=== PATIENT | female | born 1995 | race Caucasian/White ===

== ENCOUNTER → 2017-12-14 | Outpatient (CLI) | payer OTHER ==
[2017-12-21 10:13] LABS: CHLAMYDIA BY NAA Positive (Negative); GONOCOCCUS BY NAA Negative (Negative); TRICH VAG BY NAA Negative (Negative)
== END | disposition home or self-care (01) ==
LOC: LAB 12:04 → LAB SHORT 12:04
PROVIDERS: Obstetrics & Gynecology
DX: Z11.3 Encounter for screening for infections with a predominantly sexual mode of transmission (principal); Z01.419 Encounter for gynecological examination (general) (routine) without abnormal findings
CPT/HCPCS: 87491; 87591; 87661; G0123

== ENCOUNTER → 2021-03-13 | Outpatient (CLI) | payer OTHER ==
[2021-03-15 01:10] LABS: CHLAMYDIA TRACHOMATIS, NAA Negative (Negative)
== END ==
LOC: LAB 13:50 → LAB SHORT 13:50
PROVIDERS: Advanced Practice Midwife
DX: Z01.419 Encounter for gynecological examination (general) (routine) without abnormal findings (principal); Z11.3 Encounter for screening for infections with a predominantly sexual mode of transmission
CPT/HCPCS: 87491; 87591; G0123

== ENCOUNTER → 2021-10-19 | Outpatient (CLI) | payer OTHER ==
[2021-10-20 08:08] LABS: HIV AB/P24 AG SCREEN Non Reactive (Non Reactive)
[2021-10-20 09:08] LABS: HBSAG SCREEN Negative (Negative); HCV AB <0.1 (0.0-0.9); HEP A AB, IGM Negative (Negative); HEP B CORE AB, IGM Negative (Negative)
[2021-10-20 22:08] LABS: CHLAMYDIA TRACHOMATIS, NAA Negative (Negative)
== END ==
LOC: LAB SHORT 11:40 → LAB 11:40
PROVIDERS: Physician Assistant
DX: N76.0 Acute vaginitis (principal); N72 Inflammatory disease of cervix uteri
CPT/HCPCS: 80074; 86592; 87086; 87389; 87491; 87591

== ENCOUNTER → 2022-06-14 | Outpatient (CLI) | payer OTHER | LOC: LAB 09:53 → LAB SHORT 09:53 | DX: R30.0 Dysuria (principal) | CPT/HCPCS: 87086 ==

== ENCOUNTER → 2022-09-10 | Outpatient (CLI) | payer OTHER ==
[2022-09-12 05:12] LABS: CHLAMYDIA TRACHOMATIS, NAA Negative (Negative)
== END | disposition home or self-care (01) ==
LOC: LAB 09:47 → LAB SHORT 09:47
PROVIDERS: Obstetrics & Gynecology
DX: Z11.3 Encounter for screening for infections with a predominantly sexual mode of transmission (principal)
CPT/HCPCS: 87491; 87591

== ENCOUNTER → 2022-10-08 | Outpatient (CLI) | payer OTHER ==
[2022-10-08 16:29] LABS: BASOPHILS ABSOLUTE AUTO 0.06 K/mm3 (0.00-0.23); BASOPHILS PERCENT AUTO 1 % (0-2); EOSINOPHILS ABSOLUTE AUTO 0.12 K/mm3 (0.00-0.68); EOSINOPHILS PERCENT AUTO 1 % (0-6); Hematocrit 39.1 % (33.0-51.0); Hemoglobin 13.5 g/dL (11.5-16.0); IMMATURE GRAN ABSOLUTE AUTO 0.06 K/mm3 (0.00-0.10); IMMATURE GRAN PERCENT AUTO 1 % (0-1); LYMPHOCYTES ABSOLUTE AUTO 2.08 K/mm3 (0.84-5.20); LYMPHOCYTES PERCENT AUTO 19 % (21-46); MONOCYTES ABSOLUTE AUTO 0.66 K/mm3 (0.16-1.47); MONOCYTES PERCENT AUTO 6 % (4-13); Mean Corpuscular HGB 31.5 pg (26.0-34.0); Mean Corpuscular HGB Conc 34.5 g/dL (31.5-36.5); Mean Corpuscular Volume 91 fL (80-100); NEUTROPHILS ABSOLUTE AUTO 8.01 K/mm3 (1.96-9.15); NEUTROPHILS PERCENT AUTO 73 % (41-73); Platelet Count 279 K/mm3 (150-400); RDW Coefficient Variation 12.4 % (11.7-14.2); RDW Standard Deviation 41.3 fL (35.1-46.3); Red Blood Cell Count 4.28 M/mm3 (3.80-5.20); White Blood Cell Count 10.99 K/mm3 (4.00-11.30)
[2022-10-08 17:18] LABS: Albumin, Blood 3.1 g/dL (3.4-5.0); Albumin/Globulin Ratio 0.9 (0.8-1.8); Bilirubin, Total 0.3 mg/dL (0.1-1.0); Bun/Creatinine Ratio 18.9 (12.0-20.0); Calcium, Blood 8.7 mg/dL (8.5-10.1); Creatinine, Blood 0.48 mg/dL (0.40-1.00); Globulin, Blood 3.6 g/dL (2.2-4.0); Potassium, Blood 3.5 mmol/L (3.5-5.5); Total Protein, Blood 6.7 g/dL (6.4-8.2)
[2022-10-10 19:08] LABS: AFP MOM 0.44 (.); AFP VALUE 22.7 ng/mL (.); GEST. AGE ON COLLECTION DATE 18.4 weeks (.); INSULIN DEP DIABETES No (.); MATERNAL AGE AT EDD 26.4 yr (.); MULTIPLE GESTATION No (.); OSBR RISK 1 IN 10000 (.); RACE Other (.); TEST RESULTS: *Screen Negative* (.); WEIGHT 132 lbs (.)
== END | disposition home or self-care (01) ==
LOC: LAB 14:05 → LAB SHORT 14:05
PROVIDERS: Advanced Practice Midwife
DX: O09.92 Supervision of high risk pregnancy, unspecified, second trimester (principal); R03.0 Elevated blood-pressure reading, without diagnosis of hypertension
CPT/HCPCS: 80053; 82105; 85025

== ENCOUNTER → 2022-10-13 | Outpatient (CLI) | payer OTHER ==
[2022-10-13 08:34] LABS: Protein, Urine Quantitative 7.1 mg/dL (0.0-11.9)
== END | disposition home or self-care (01) ==
LOC: LAB 06:30 → LAB SHORT 06:30
PROVIDERS: Advanced Practice Midwife
DX: R03.0 Elevated blood-pressure reading, without diagnosis of hypertension (principal)
CPT/HCPCS: 81050; 84156

== ENCOUNTER → 2023-02-11 | Outpatient (CLI) | payer OTHER ==
[2023-02-11 13:50] LABS: BASOPHILS ABSOLUTE AUTO 0.04 K/mm3 (0.00-0.23); BASOPHILS PERCENT AUTO 0 % (0-2); EOSINOPHILS PERCENT AUTO 1 % (0-6); Hematocrit 38.9 % (33.0-51.0); Hemoglobin 13.5 g/dL (11.5-16.0); IMMATURE GRAN ABSOLUTE AUTO 0.15 K/mm3 (0.00-0.10); IMMATURE GRAN PERCENT AUTO 1 % (0-1); LYMPHOCYTES ABSOLUTE AUTO 2.17 K/mm3 (0.84-5.20); LYMPHOCYTES PERCENT AUTO 17 % (21-46); MONOCYTES ABSOLUTE AUTO 0.89 K/mm3 (0.16-1.47); MONOCYTES PERCENT AUTO 7 % (4-13); Mean Corpuscular HGB 32.1 pg (26.0-34.0); Mean Corpuscular HGB Conc 34.7 g/dL (31.5-36.5); Mean Corpuscular Volume 92 fL (80-100); Mean Platelet Volume 10.6 fL (9.1-12.4); NEUTROPHILS ABSOLUTE AUTO 9.24 K/mm3 (1.96-9.15); NEUTROPHILS PERCENT AUTO 73 % (41-73); Platelet Count 207 K/mm3 (150-400); RDW Coefficient Variation 12.3 % (11.7-14.2); RDW Standard Deviation 41.7 fL (35.1-46.3); Red Blood Cell Count 4.21 M/mm3 (3.80-5.20); White Blood Cell Count 12.59 K/mm3 (4.00-11.30)
[2023-02-11 14:08] LABS: Albumin, Blood 2.7 g/dL (3.4-5.0); Albumin/Globulin Ratio 0.7 (0.8-1.8); Bilirubin, Total 0.1 mg/dL (0.1-1.0); Calcium, Blood 8.9 mg/dL (8.5-10.1); Creatinine, Blood 0.5 mg/dL (0.40-1.00); Total Protein, Blood 6.7 g/dL (6.4-8.2)
[2023-02-11 14:53] LABS: Creatinine, Urine Random 7.51 mg/dL (27.00-270.00)
[2023-02-11 14:57] LABS: Protein, Urine Random <5.0 mg/dL (0.0-11.9); Protein/Creat Ratio, Ur Random Unable to Calculate
== END | disposition home or self-care (01) ==
LOC: LAB 13:14 → LAB SHORT 13:14
PROVIDERS: Obstetrics & Gynecology
DX: O16.9 Unspecified maternal hypertension, unspecified trimester (principal)
CPT/HCPCS: 80053; 82570; 84156; 85025

== ENCOUNTER → 2023-02-24 | Outpatient (CLI) | payer OTHER | LOC: LAB 15:04 → LAB SHORT 15:04 | DX: O09.93 Supervision of high risk pregnancy, unspecified, third trimester (principal); Z3A.00 Weeks of gestation of pregnancy not specified | CPT/HCPCS: 87081; 87150 ==

== ENCOUNTER 2023-03-22 07:03 | Inpatient (IN) | payer OTHER, BC ==
[~2023-03-22] VITALS: Ht 165.1 cm; Wt 72.7 kg
[2023-03-22] VITALS (26 sets, daily range): BP systolic 113–150; BP diastolic 61–99
[2023-03-22 07:51] LABS: BASOPHILS ABSOLUTE AUTO 0.03 K/mm3 (0.00-0.23); BASOPHILS PERCENT AUTO 0 % (0-2); EOSINOPHILS ABSOLUTE AUTO 0.08 K/mm3 (0.00-0.68); EOSINOPHILS PERCENT AUTO 1 % (0-6); Hematocrit 38.2 % (33.0-51.0); Hemoglobin 13.1 g/dL (11.5-16.0); IMMATURE GRAN ABSOLUTE AUTO 0.04 K/mm3 (0.00-0.10); IMMATURE GRAN PERCENT AUTO 0 % (0-1); LYMPHOCYTES ABSOLUTE AUTO 2.08 K/mm3 (0.84-5.20); LYMPHOCYTES PERCENT AUTO 22 % (21-46); MONOCYTES ABSOLUTE AUTO 0.57 K/mm3 (0.16-1.47); MONOCYTES PERCENT AUTO 6 % (4-13); Mean Corpuscular HGB Conc 34.3 g/dL (31.5-36.5); Mean Corpuscular Volume 90 fL (80-100); NEUTROPHILS ABSOLUTE AUTO 6.54 K/mm3 (1.96-9.15); NEUTROPHILS PERCENT AUTO 70 % (41-73); Platelet Count 206 K/mm3 (150-400); RDW Coefficient Variation 12.2 % (11.7-14.2); RDW Standard Deviation 39.8 fL (35.1-46.3); Red Blood Cell Count 4.23 M/mm3 (3.80-5.20); White Blood Cell Count 9.34 K/mm3 (4.00-11.30)
[2023-03-22] MEDS ORDERED: PRENATAL TABLE1 EAC2 PO (09:24)
[2023-03-22] MEDS ORDERED: Aspir 8181 MG PO (09:24)
[2023-03-23] VITALS (30 sets, daily range): BP systolic 108–153; BP diastolic 56–98
--- NOTE | 2023-03-23 10:28 | NUR ---
Pt dozing, woke easily to touch. Reported nb has not eaten since 0630 feed. Nb asleep in open crib at bedside. Will try to wake nb soon for feed.
[2023-03-23 11:45] LABS: BASOPHILS ABSOLUTE AUTO 0.04 K/mm3 (0.00-0.23); BASOPHILS PERCENT AUTO 0 % (0-2); EOSINOPHILS ABSOLUTE AUTO 0.04 K/mm3 (0.00-0.68); EOSINOPHILS PERCENT AUTO 0 % (0-6); Hematocrit 32.1 % (33.0-51.0); Hemoglobin 10.8 g/dL (11.5-16.0); IMMATURE GRAN ABSOLUTE AUTO 0.07 K/mm3 (0.00-0.10); IMMATURE GRAN PERCENT AUTO 1 % (0-1); LYMPHOCYTES ABSOLUTE AUTO 2.29 K/mm3 (0.84-5.20); LYMPHOCYTES PERCENT AUTO 16 % (21-46); MONOCYTES ABSOLUTE AUTO 1.07 K/mm3 (0.16-1.47); MONOCYTES PERCENT AUTO 8 % (4-13); Mean Corpuscular HGB 30.8 pg (26.0-34.0); Mean Corpuscular HGB Conc 33.6 g/dL (31.5-36.5); Mean Corpuscular Volume 92 fL (80-100); Mean Platelet Volume 10.9 fL (9.1-12.4); NEUTROPHILS ABSOLUTE AUTO 10.71 K/mm3 (1.96-9.15); NEUTROPHILS PERCENT AUTO 75 % (41-73); Platelet Count 176 K/mm3 (150-400); RDW Coefficient Variation 12.5 % (11.7-14.2); RDW Standard Deviation 41.6 fL (35.1-46.3); Red Blood Cell Count 3.51 M/mm3 (3.80-5.20); White Blood Cell Count 14.22 K/mm3 (4.00-11.30)
--- NOTE | 2023-03-23 12:02 | NUR ---
1030: ROUNDED ON PT, DOZING, DENIED NEEDS 1040: CALL LIGHT ANSWERED BY Roel GARCIA, RN, PT C/O 9/10 PAIN IN PERINEUM. VALERY ASSESSED PERINEUM, NOTED EDEMATOUS BUT DID NOT FEEL SHE SAW A HEMATOMA, MEDICATED PT WITH TORADOL FOR PAIN AT 1044. 1050: THIS RN BACK TO ROOM W/NHI TO FURTHER ASSESS AND LARGE HEMATOMA NOTED ON RIGHT LABIA AND RIGHT SIDE OF PERINEUM. PT STILL PAINFUL 1052: CALLS PLACED TO Thalia PUGA CNM AND DR. SEE. 1105: DR SEE ON FLOOR FROM OR, VERBAL ORDER FOR FENTNYL FOR COMFORT SO SHE CAN BETTER ASSESS. FEELS PT SHOULD BE TAKEN TO OR FOR BETTER ASSESSMENT OF HEMATOMA AND REPAIR. 1145: PT TO OR
--- NOTE | 2023-03-23 12:05 | NUR ---
PT HERE FROM [facility] FOR EMERGENT EVAC OF VAGINAL HEMATOMA. Pre-Op teaching done. Pt verbalizes understanding. History, Chart, Medications and Allergies reviewed before start of procedure. ATE LAST AT 0630. WATER AT 1100
--- NOTE | 2023-03-23 13:32 | NUR ---
AWARE OF VSS ELEVATED BP AND PULSE NO NEW ORDERS
--- NOTE | 2023-03-23 14:20 | NUR ---
PERINEAL ASSESSEMNT left labial appears more swollen than right, still fair amount of bruising/dark tissue at base of vagina, perineum. Perineum not as soft as labial edema, will have RN who assessed when first back from OR look also to see if similar from when returned.
--- NOTE | 2023-03-23 14:50 | NUR ---
perineum unchanged from previous assessment
--- NOTE | 2023-03-23 16:00 | NUR ---
Perineum unchanged from preivous assessment, pt continues to deny increasing pain or pressure.
--- NOTE | 2023-03-23 18:00 | NUR ---
MD at bedside to assess perineum, also feels remains stable. Vag packing and jama to remain in place until AM.
--- NOTE | 2023-03-23 19:05 | NUR ---
Perinuem unchanged except left labial swelling decreasing slightly. NOC RN and supercharger mechanic in room to assess with offgoing shift. Lochia and vaginal bleeding light.
--- NOTE | 2023-03-23 22:07 | NUR ---
1930: INITIAL ASSESSMENT, LEFT LABIAL IS GROSSLY SWOLLEN COMPARE TO RIGHT, BRUISING AT THE BASE OF VAGINA THAT EXTENDS AROUND RECTUM. VAGINAL PACKING INTACT. VERY LIGHT BLEEDING IN YORDAN-AREA.
--- NOTE | 2023-03-23 23:54 | NUR ---
2330: PERINEUM REMAINED UNCHANGED FROM INITIAL ASSESSMENT.
[2023-03-24 04:17] VITALS: BP 116/68
--- NOTE | 2023-03-24 04:47 | NUR ---
0420: PATIENT'S PERINEUM REMAIN UNCHANGED, ASSESSED WITH HELLEN STINSON
[2023-03-24 06:29] LABS: BASOPHILS ABSOLUTE AUTO 0.04 K/mm3 (0.00-0.23); BASOPHILS PERCENT AUTO 0 % (0-2); EOSINOPHILS ABSOLUTE AUTO 0.05 K/mm3 (0.00-0.68); EOSINOPHILS PERCENT AUTO 0 % (0-6); Hematocrit 26.1 % (33.0-51.0); Hemoglobin 8.7 g/dL (11.5-16.0); IMMATURE GRAN ABSOLUTE AUTO 0.08 K/mm3 (0.00-0.10); IMMATURE GRAN PERCENT AUTO 1 % (0-1); LYMPHOCYTES ABSOLUTE AUTO 2.82 K/mm3 (0.84-5.20); LYMPHOCYTES PERCENT AUTO 23 % (21-46); MONOCYTES ABSOLUTE AUTO 0.74 K/mm3 (0.16-1.47); MONOCYTES PERCENT AUTO 6 % (4-13); Mean Corpuscular HGB 30.9 pg (26.0-34.0); Mean Corpuscular HGB Conc 33.3 g/dL (31.5-36.5); Mean Corpuscular Volume 93 fL (80-100); Mean Platelet Volume 10.4 fL (9.1-12.4); NEUTROPHILS ABSOLUTE AUTO 8.38 K/mm3 (1.96-9.15); NEUTROPHILS PERCENT AUTO 69 % (41-73); Platelet Count 156 K/mm3 (150-400); RDW Coefficient Variation 12.8 % (11.7-14.2); RDW Standard Deviation 42.6 fL (35.1-46.3); Red Blood Cell Count 2.82 M/mm3 (3.80-5.20); White Blood Cell Count 12.11 K/mm3 (4.00-11.30)
[2023-03-24 07:00] VITALS: BP 130/87
--- NOTE | 2023-03-24 10:51 | NUR ---
LATE ENTRY UPDATED EPIDURAL START DATE PER EMR GE
[2023-03-24 12:30] VITALS: BP 122/75
[2023-03-24 16:04] VITALS: BP 127/68
[2023-03-24 20:15] VITALS: BP 132/75
[2023-03-24 23:03] VITALS: BP 127/72
[2023-03-25 04:00] VITALS: BP 125/80
[2023-03-25 08:25] VITALS: BP 117/70
[2023-03-25] MEDS ORDERED: IBUP800 PO (09:42)
== END 2023-03-25 10:40 | disposition home or self-care (01) | DRG 806 ==
LOC: OBS 07:03 → BC 07:03 → OBS 07:14 → BC 07:15
PROVIDERS: Obstetrics & Gynecology; ADMIT Advanced Practice Midwife
PROC: 3E033VJ Introduction of Other Hormone into Peripheral Vein, Percutaneous Approach (ICD-10-PCS; 2023-03-23)
PROC: 3E0R3BZ Introduction of Anesthetic Agent into Spinal Canal, Percutaneous Approach (ICD-10-PCS; 2023-03-23)
PROC: 00HU33Z Insertion of Infusion Device into Spinal Canal, Percutaneous Approach (ICD-10-PCS; 2023-03-23)
PROC: 0UQMXZZ Repair Vulva, External Approach (ICD-10-PCS; 2023-03-23)
PROC: 0UQMXZZ Repair Vulva, External Approach (ICD-10-PCS; 2023-03-23)
PROC: 0UCG7ZZ Extirpation of Matter from Vagina, Via Natural or Artificial Opening (ICD-10-PCS; 2023-03-23)
PROC: 10E0XZZ Delivery of Products of Conception, External Approach (ICD-10-PCS; principal; 2023-03-23 12:00)
DX: O10.92 Unspecified pre-existing hypertension complicating childbirth (principal); O71.7 Obstetric hematoma of pelvis; Z37.0 Single live birth; Z3A.39 39 weeks gestation of pregnancy; Z79.899 Other long term (current) drug therapy; Z79.82 Long term (current) use of aspirin; O99.893 Other specified diseases and conditions complicating puerperium; N81.2 Incomplete uterovaginal prolapse; O70.0 First degree perineal laceration during delivery; O71.82 Other specified trauma to perineum and vulva
CPT/HCPCS: 36415; 51702; 85025; 86850; 86900; 86901; A9270; J0690; J1100; J1885; J2250; J2371; J2405; J2590; J2704; J2916; J3010; J7120

== ENCOUNTER 2023-03-30 10:13 | Emergency (ER) | payer OTHER, BC ==
[~2023-03-30] VITALS: Ht 165.1 cm; Wt 72.6 kg
[~2023-03-30 10:13] MED LIST: Aspir 8181 MG PO; IBUP800 PO; PRENATAL TABLE1 EAC2 PO
[2023-03-30 10:49] VITALS: BP 142/100
== END 2023-03-30 11:44 | disposition home or self-care (01) ==
LOC: ER 10:13
DX: T16.2XXA Foreign body in left ear, initial encounter (principal)
CPT/HCPCS: 99282

== ENCOUNTER → 2023-09-17 | Outpatient (CLI) | payer OTHER, BC | LOC: LAB SHORT 20:31 → LAB 20:31 | DX: J02.9 Acute pharyngitis, unspecified (principal) ==

== ENCOUNTER 2024-01-05 21:13 | Emergency (ER) | payer OTHER, BC ==
[~2024-01-05] VITALS: Ht 165.1 cm; Wt 54.4 kg
[2024-01-05 21:29] VITALS: BP 151/100
[2024-01-05 21:38] LABS: Source, Urine Clean Catch
[2024-01-05 21:45] LABS: Appearance, Urine Hazy (Clear); Blood, Urine 5+ (Neg); Glucose Qualitative, Urine Neg (Neg); Ketones, Urine Neg (Neg); Leukocyte Esterase, Urine 3+ (Neg); Nitrite, Urine Pos (Neg); Protein, Urine 2+ (Neg); Urobilinogen, Urine 1+ (Normal); pH, Urine 6.5 (5.0-8.0)
[2024-01-05 22:05] LABS: Bilirubin, Urine 1+ (Neg)
[2024-01-05 22:06] LABS: Bacteria Mod /hpf; Color, Urine Amber (P-Yellow); Red Blood Cells, Urine 0-2 /hpf (0-2); Squamous Epithelial Cells Few /hpf (Few); White Blood Cells, Urine 25-50 /hpf (0-5)
[2024-01-05] MEDS ORDERED: Cephalexin Monohydrate 500 MG Cap PO ONE (22:15)
[2024-01-05] MEDS ORDERED: Pyridium100 MG PO (22:20)
[2024-01-05] MEDS ORDERED: CEPH500 PO (22:20)
== END 2024-01-05 22:44 | disposition home or self-care (01) ==
LOC: ER 21:13
PROVIDERS: Student in an Organized Health Care Education/Training Program
DX: N39.0 Urinary tract infection, site not specified (principal); I10 Essential (primary) hypertension
CPT/HCPCS: 81001; 87077; 87086; 87186; 99283; A9270

== ENCOUNTER → 2024-06-13 | Outpatient (CLI) | payer OTHER, BC ==
[~2024-06-13] MED LIST changes: +CEPH500 PO; +Pyridium100 MG PO
[2024-06-20 07:24] LABS: HPV HIGH RISK BY TMA Not Detected; HPV SOURCE Cervical
== END | disposition home or self-care (01) ==
LOC: LAB SHORT 17:06 → LAB 17:06
PROVIDERS: Obstetrics & Gynecology
DX: Z01.419 Encounter for gynecological examination (general) (routine) without abnormal findings (principal)
CPT/HCPCS: 87624; G0123